=== PATIENT | female | born 1970 | race Caucasian/White ===

== ENCOUNTER 2022-10-27 18:26 | Emergency (ER) | payer OTHER ==
[~2022-10-27] VITALS: Ht 160 cm; Wt 61.2 kg
[2022-10-27 18:40] VITALS: BP_SYST 208
--- NOTE | 2022-10-27 18:40 | NUR ---
Patient to ER bed 5 to gown for evaluation. Side rails up.
--- NOTE | 2022-10-27 18:41 | NUR ---
PT PRSENTS TO ED C/O CP W/NAUSEA. PT REPORTS PREVIOUS OF CP AND NAUSEA.
--- NOTE | 2022-10-27 18:55 | NUR ---
PT MEDICATED TOLERATED WELL.
[2022-10-27] MEDS ORDERED: LABETALOL HCL 20 MG/4 ML CARTRIDGE IVP ONE (19:00)
[2022-10-27] MEDS ORDERED: LORazepam 2 MG/ML VIAL IVP ONE (19:00)
[2022-10-27] MEDS ORDERED: ATENOLOL 25 MG TABLET(TENORMIN) PO ONE (19:00)
--- NOTE | 2022-10-27 19:00 | NUR ---
Dr. Haley at bedside examining the patient.
--- NOTE | 2022-10-27 19:38 | NUR ---
COVID SWAB COLLECTED AND SENT TO LAB.
--- NOTE | 2022-10-27 19:45 | NUR ---
Patient ambulated with a steady gait to ER bed 8. Bed in lowest position, side rails up. Spouse at bedside. Addendum: 10/27/22 at 2006 by MIC Patient ambulated with a steady gait to ER bed 5. Bed in lowest position, side rails up. Spouse at bedside.
[2022-10-27 19:49] LABS: BASOPHILS % (AUTO) 0.4 % (0.0-2.0); EOSINOPHILS % (AUTO) 0.4 % (0.0-4.0); HEMATOCRIT 38.1 % (36-48); HEMOGLOBIN 12.7 g/dL (12.0-16.0); LYMPHOCYTES # (AUTO) 2.2 K/uL (1.0-5.5); MEAN CORPUSCULAR HEMOGLOBIN 28 pg (27-31); MEAN CORPUSCULAR HGB CONC 33 % (32-36); MEAN CORPUSCULAR VOLUME 83 fL (79.0-98.0); MONOCYTES # (AUTO) 0.4 K/uL (0.0-1.0); MONOCYTES % (AUTO) 4.6 % (1.7-9.3); NEUTROPHILS # (AUTO) 6.1 K/uL (1.8-7.7); NEUTROPHILS % (AUTO) 69.6 % (40.0-70.0); PLATELET COUNT (AUTO) 255 K/uL (130-430); RED BLOOD CELL COUNT(AUTO) 4.57 MIL/uL (4.2-6.2); RED CELL DISTRIBUTION WIDTH 13.2 % (9.0-15.0); WHITE BLOOD COUNT (AUTO) 8.8 K/uL (4.8-10.8)
[2022-10-27 19:52] LABS: ANION GAP 10 (5-15); CALCIUM 9.5 mg/dL (8.4-11.0); CHLORIDE 102 mmol/L (98-107); CREATININE 0.91 mg/dL (0.55-1.30); GLUCOSE 112 mg/dL (70-99); UREA NITROGEN, BLOOD 14 mg/dL (8-21)
[2022-10-27 19:53] LABS: GFR AFRICAN AMERICAN 83 mL/min (>90)
[2022-10-27 20:05] LABS: ALANINE AMINOTRANSFERASE 41 U/L (12-78); ALBUMIN 4.6 g/dL (3.4-4.8); ASPARTATE AMINOTRANSFERASE 24 U/L (10-37); THYROID STIMULATING HORMONE 1.22 uIu/mL (0.34-4.82); TOTAL BILIRUBIN 0.3 mg/dL (0.0-1.0)
[2022-10-27] MEDS ORDERED: BENA10TA73 PO (21:52)
[2022-10-27 22:04] VITALS: BP_SYST 122
--- NOTE | 2022-10-27 22:13 | NUR ---
Patient is alert and oriented x4, respirations even and unlabored, speaking in full sentences and ambulating with a steady gait. Denied any acute distress at this time. VSS. Okay for discharge per Dr. Haley. Discharge instructions and prescriptions given. ED and 911 precautions given. Patient verbalized understanding.
== END 2022-10-27 22:04 | disposition home or self-care (01) ==
LOC: SED 18:26
DX: I16.0 Hypertensive urgency (principal); F43.0 Acute stress reaction; R07.9 Chest pain, unspecified; Z79.899 Other long term (current) drug therapy; Z20.822 Contact with and (suspected) exposure to COVID-19
CPT/HCPCS: 99284; 96374; 71045; 96375; 87426; 80053; 83880; 84443; 85025; 84484; 36415; J2060

== ENCOUNTER 2023-10-29 16:35 | Emergency (ER) | payer OTHER ==
[~2023-10-29] VITALS: Ht 160 cm; Wt 62.1 kg
[~2023-10-29 16:35] MED LIST: BENA10TA73 PO
[2023-10-29 16:45] VITALS: BP_SYST 156; PULSE 92; RESP 18; TEMP 98.2; O2SAT 97
[2023-10-29 17:14] LABS: BASOPHILS % (AUTO) 0.5 % (0.0-2.0); EOSINOPHILS # (AUTO) 0.1 K/uL (0.0-0.4); EOSINOPHILS % (AUTO) 1.7 % (0.0-4.0); HEMATOCRIT 35.9 % (36-48); HEMOGLOBIN 12.2 g/dL (12.0-16.0); LYMPHOCYTES # (AUTO) 2.4 K/uL (1.0-5.5); MEAN CORPUSCULAR HEMOGLOBIN 28 pg (27-31); MEAN CORPUSCULAR HGB CONC 34 % (32-36); MEAN CORPUSCULAR VOLUME 83 fL (79.0-98.0); MONOCYTES # (AUTO) 0.6 K/uL (0.0-1.0); MONOCYTES % (AUTO) 7.4 % (1.7-9.3); NEUTROPHILS # (AUTO) 4.7 K/uL (1.8-7.7); NEUTROPHILS % (AUTO) 59.4 % (40.0-70.0); PLATELET COUNT (AUTO) 251 K/uL (130-430); RED BLOOD CELL COUNT(AUTO) 4.34 MIL/uL (4.2-6.2); RED CELL DISTRIBUTION WIDTH 13.1 % (9.0-15.0); WHITE BLOOD COUNT (AUTO) 7.8 K/uL (4.8-10.8)
[2023-10-29 17:30] LABS: ANION GAP 6 (5-15); CALCIUM 9.1 mg/dL (8.4-11.0); CARBON DIOXIDE 28 mmol/L (23-29); CHLORIDE 104 mmol/L (98-107); CREATININE 0.82 mg/dL (0.55-1.30); GFR AFRICAN AMERICAN 93 mL/min (>90); GLUCOSE 75 mg/dL (74-106); POTASSIUM 4.1 mmol/L (3.5-5.1); SODIUM SERUM 138 mmol/L (136-145); UREA NITROGEN, BLOOD 16 mg/dL (8-21)
[2023-10-29] MEDS ORDERED: KETOROLAC TROMETHAMINE 30 MG VIAL IM ONE (17:30)
[2023-10-29] MEDS ORDERED: ACETAMINOPHEN 500 MG TABLET PO ONE (17:30)
[2023-10-29 17:38] LABS: GFR NON AFRICAN-AMERICAN 77 mL/min (>90)
[2023-10-29 20:31] VITALS: BP_SYST 161; PULSE 80; RESP 16; TEMP 98; O2SAT 98
== END 2023-10-29 20:31 | disposition home or self-care (01) ==
LOC: SED 16:35
DX: R07.89 Other chest pain (principal); R11.0 Nausea; R06.02 Shortness of breath; I10 Essential (primary) hypertension
CPT/HCPCS: 36415; 71045; 80048; 83880; 84484; 85025; 93005; 99285

== ENCOUNTER 2023-12-10 20:56 | Emergency (ER) | payer OTHER ==
[~2023-12-10] VITALS: Ht 160 cm; Wt 61.7 kg
[2023-12-10 21:00] VITALS: BP_SYST 157; PULSE 91; RESP 18; TEMP 97.6; O2SAT 100
[2023-12-10 21:29] LABS: BASOPHILS % (AUTO) 0.3 % (0.0-2.0); EOSINOPHILS # (AUTO) 0.1 K/uL (0.0-0.4); HEMATOCRIT 35.8 % (36-48); HEMOGLOBIN 12.3 g/dL (12.0-16.0); LYMPHOCYTES # (AUTO) 2.7 K/uL (1.0-5.5); LYMPHOCYTES % (AUTO) 33.4 % (20.5-51.5); MEAN CORPUSCULAR HEMOGLOBIN 28 pg (27-31); MEAN CORPUSCULAR HGB CONC 34 % (32-36); MEAN CORPUSCULAR VOLUME 81 fL (79.0-98.0); MONOCYTES # (AUTO) 0.3 K/uL (0.0-1.0); MONOCYTES % (AUTO) 4.2 % (1.7-9.3); NEUTROPHILS # (AUTO) 4.9 K/uL (1.8-7.7); NEUTROPHILS % (AUTO) 61.1 % (40.0-70.0); PLATELET COUNT (AUTO) 233 K/uL (130-430); RED BLOOD CELL COUNT(AUTO) 4.42 MIL/uL (4.2-6.2); RED CELL DISTRIBUTION WIDTH 13.5 % (9.0-15.0)
[2023-12-10 21:53] LABS: PROTHROMBIN TIME 10.8 SECS (9.5-12.5)
[2023-12-10 22:22] LABS: ANION GAP 9 (5-15); CALCIUM 9.1 mg/dL (8.4-11.0); CARBON DIOXIDE 29 mmol/L (23-29); CHLORIDE 96 mmol/L (98-107); CREATINE KINASE, TOTAL 70 U/L (26-192); GFR AFRICAN AMERICAN 55 mL/min (>90); GLUCOSE 213 mg/dL (74-106); SODIUM SERUM 134 mmol/L (136-145); UREA NITROGEN, BLOOD 21 mg/dL (8-21)
[2023-12-10 22:25] LABS: GFR NON AFRICAN-AMERICAN 45 mL/min (>90)
[2023-12-10 22:27] LABS: POTASSIUM 2.9 mmol/L (3.5-5.1)
[2023-12-10] MEDS: POTASSIUM CHLORIDE 20 MEQ TABLET.ER PO ONE (22:51)
[2023-12-11 01:48] VITALS: BP_SYST 157; PULSE 91; RESP 18; TEMP 97.6; O2SAT 100
== END 2023-12-11 01:48 | disposition home or self-care (01) ==
LOC: SED 20:56
DX: S80.01XA Contusion of right knee, initial encounter (principal); R55 Syncope and collapse; I10 Essential (primary) hypertension; Z79.899 Other long term (current) drug therapy; W01.0XXA Fall on same level from slipping, tripping and stumbling without subsequent striking against object, initial encounter; Y93.89 Activity, other specified; Y92.89 Other specified places as the place of occurrence of the external cause; Y99.8 Other external cause status
CPT/HCPCS: 36415; 71045; 73564; 80048; 82550; 83605; 84484; 85025; 85610; 85730; 93005; 99285